=== PATIENT | female | born 1975 | race Caucasian/White ===

== ENCOUNTER 2022-07-25 10:30 | Outpatient (CLI) | payer OTHER, SELFPAY ==
--- NOTE | 2022-07-25 10:57 | MM_ITS ---
WS: [id number] BILATERAL SCREENING DIGITAL TOMOSYNTHESIS MAMMOGRAM WITH CAD HISTORY: SCREENING COMPARISON: None available. Bilateral CC and MLO views with tomosynthesis and synthetic mammography submitted. Computer aided det ection analyzed. Limited LEFT MLO. Breast composition: There are scattered areas of fibroglandular density. No suspicious masses, microc alcifications or architectural distortion. MM/[place] [id number] IMPRESSION: BI-RADS: 2-Benign FOLLOW UP: 1 Year Follow-up
== END 2022-07-25 10:31 | disposition home or self-care (01) ==
LOC: RAD 10:44
PROVIDERS: PCP Nurse Practitioner Family; Visit Provider Nurse Practitioner Family
DX: Z12.31 Encounter for screening mammogram for malignant neoplasm of breast (principal)
CPT/HCPCS: 77063; 77067

== ENCOUNTER → 2022-08-10 09:55 | Outpatient (BNVA) | payer MEDICARE, OTHER, SELFPAY | PROVIDERS: PCP Nurse Practitioner Family; Visit Provider Podiatrist Foot & Ankle Surgery | DX: M72.2 Plantar fascial fibromatosis (principal); M21.6X1 Other acquired deformities of right foot | CPT/HCPCS: 73630; 99204 ==

== ENCOUNTER 2022-08-10 14:42 | Outpatient (CLI) | payer MEDICARE, MEDICAID, SELFPAY | END 2022-08-10 14:43 | disposition home or self-care (01) | LOC: SPT 14:43 | PROVIDERS: PCP Nurse Practitioner Family; Visit Provider Podiatrist Foot & Ankle Surgery | DX: Z46.89 Encounter for fitting and adjustment of other specified devices (principal); M79.671 Pain in right foot | CPT/HCPCS: 97760; L4397 ==

== ENCOUNTER → 2022-12-09 07:44 | Outpatient (BNVA) | payer MEDICARE, SELFPAY | PROVIDERS: PCP Nurse Practitioner Family; Referring Provider Nurse Practitioner Family; Visit Provider Specialist | DX: G31.84 Mild cognitive impairment of uncertain or unknown etiology; R90.89 Other abnormal findings on diagnostic imaging of central nervous system; M79.7 Fibromyalgia | CPT/HCPCS: 99204 ==

== ENCOUNTER 2024-06-25 12:36 | Outpatient (CLI) | payer MEDICARE, SELFPAY ==
--- NOTE | 2024-06-25 12:44 | XRR_ITS ---
PROCEDURE INFORMATION: Exam: XR Chest Exam date and time: 06/25/2024 12:58 PM Age: 49 years old Clinical indication: Cough and congestion x 1 mo, chest and mid back pain since, checking for pneumonia; Additional info: Bronchitis TECHNIQUE: Imaging protocol: Radiologic exam of the chest. Views: 2 views. COMPARISON: No relevant prior studies available. FINDINGS: Lungs: Mild areas of linear and streaky scar versus atelectasis in the lower lung zones. No evidence of consolidation. Pleural spaces: No pleural effusion. Heart/Mediastinum: Cardiomediastinal contours within normal limits. Bones/joints: Moderate degenerative change present in the spine. Other findings: . XR/XR chest 2V* [id number] IMPRESSION: Mild areas of linear and streaky scar versus atelectasis in the lower lung zones.
== END 2024-06-25 12:37 | disposition home or self-care (01) ==
PROVIDERS: PCP Nurse Practitioner Family; Visit Provider Nurse Practitioner Family
DX: J40 Bronchitis, not specified as acute or chronic (principal); R91.8 Other nonspecific abnormal finding of lung field; M47.9 Spondylosis, unspecified
CPT/HCPCS: 71046

== ENCOUNTER 2024-09-19 10:52 | Outpatient (CLI) | payer MEDICARE, SELFPAY ==
--- NOTE | 2024-09-19 10:54 | MM_ITS ---
WS: [id number] BILATERAL 3D TOMOSYNTHESIS DIGITAL SCREENING MAMMOGRAPHY WITH CAD CLINICAL INFORMATION: SCREENING HISTORY: Screening mammogram. No current complaints. COMPARISON: 2022 TECHNIQUE: Bilateral CC and MLO views. FINDINGS: Scattered fibroglandular densities bilaterally. No suspicious focal mass, asymmetry, calcifications, or architectural distortion. No evidence of malignancy. MM/MM scr BI tomosynthesis [id number] IMPRESSION: DENSITY: There are scattered areas of fibroglandular density. BI-RADS: 1 - Negative. FOLLOW UP: 1 Year Follow-up Recommend return to annual screening mammography.
== END 2024-09-19 10:53 | disposition home or self-care (01) ==
PROVIDERS: PCP Nurse Practitioner Family; Visit Provider Nurse Practitioner Family
DX: Z12.31 Encounter for screening mammogram for malignant neoplasm of breast (principal); R92.323 Mammographic fibroglandular density, bilateral breasts
CPT/HCPCS: 77063; 77067